=== PATIENT | female | born 1975 | race Caucasian/White ===

== ENCOUNTER 2017-08-31 06:18 | Day surgery (SDC) | payer BC, OTHER ==
[~2017-08-31 06:18] MED LIST: BUPIVACAINE HCL/PF (5 MG/ML) 30 ML VIAL IJ ONE; DEXAMETHASONE SOD PHOSPHATE 4 MG/1 ML VIAL IM ONE
[2017-08-31 07:16] VITALS: TEMP 98.4
[2017-08-31 07:23] VITALS: BMI 28.8
[2017-08-31] MEDS ORDERED: LIDOCAINE HCL 1%, 10 MG/ML (20ML VIAL) ONE (07:38)
[2017-08-31] MEDS ORDERED: DEXAMETHASONE SOD PHOSPHATE 4 MG/1 ML VIAL ONE ×2 (07:38→09:08)
[2017-08-31] MEDS ORDERED: BUPIVACAINE HCL/PF 0.5% (5MG/ML) 10 ML VIAL ONE (07:38)
[2017-08-31] MEDS ORDERED: PROPOFOL 20 ML ONE ×3 (07:53→09:28)
[2017-08-31] MEDS ORDERED: MIDAZOLAM HCL 2 MG/2 ML SINGLE DOSE VIAL ONE (07:53)
[2017-08-31] MEDS ORDERED: SUCCINYLCHOLINE CHLORIDE 200 MG/10 ML VIAL ONE (07:53)
[2017-08-31] MEDS ORDERED: ceFAZolin SODIUM 1 GM VIAL ONE ×2 (08:13→09:34)
[2017-08-31] MEDS ORDERED: BUPIVACAINE HCL/PF (5 MG/ML) 30 ML VIAL IJ ONE ×2 (08:18→09:43)
[2017-08-31] MEDS ORDERED: LIDOCAINE HCL 1%, 10 MG/ML (20ML VIAL) NR ONE (08:18)
[2017-08-31] MEDS ORDERED: KETOROLAC TROMETHAMINE 30 MG/1 ML VIAL ONE (09:28)
[2017-08-31] MEDS ORDERED: DEXAMETHASONE SOD PHOSPHATE 4 MG/1 ML VIAL IM ONE (09:43)
--- NOTE | 2017-08-31 10:37 | OP ---
Operative Note - Note: Operative Date: 08/31/17 Pre-Operative Diagnosis: soft tissue mass exostosis 1st mpj. Hammer toes 2,3,4, 5. Tailors bunion left Operation: excision tumor. Cheilectomy 1st MPJ. Arthroplasty PIPJ 2,3,4,5 left. Tailors bunionectomy left Findings: hypertrophic bone and soft tissue. Neoplasm 1st MPJ. Post-Operative Diagnosis: Same as Pre-op Surgeon: Otilia Pandey Production Control Supervisor: Bill Mejias Anesthesia: Local, MAC Estimated Blood Loss (mls): 10
[2017-08-31 11:52] VITALS: BP 119/69; PULSE 59
--- NOTE | 2017-08-31 13:16 | OP ---
DATE OF OPERATION: 08/31/2017 ATTENDING SURGEON: Otilia Pandey DPM TAILER OFF: Claudia Carrillo DPM PRE-PROCEDURE DIAGNOSES: 1. Soft tissue mass, left foot. 2. Exostosis, 1st metatarsal, left foot. 3. Hammertoe deformity, 2nd digit, left foot. 4. Hammertoe deformity, 3rd digit, left foot. 5. Hammertoe deformity, 4th digit, left foot. 6. Hammertoe deformity, 5th digit, left foot. 7. Tailor bunion. POST-PROCEDURE DIAGNOSES: 1. Soft tissue mass, left foot. 2. Exostosis, 1st metatarsal, left foot. 3. Hammertoe deformity, 2nd digit, left foot. 4. Hammertoe deformity, 3rd digit, left foot. 5. Hammertoe deformity, 4th digit, left foot. 6. Hammertoe deformity, 5th digit, left foot. 7. Tailor bunion. PROCEDURES: 1. Soft tissue mass excision. 2. Cheilectomy, left foot. 3. Second digit arthroplasty, left foot. 4. Third digit arthroplasty, left foot. 5. Fourth digit arthroplasty, left foot. 6. Fifth digit arthroplasty, left foot. 7. Tailor bunionectomy, left foot. MATERIALS: 3-0 Vicryl, 4-0 nylon, Betadine-soaked Adaptic, dry sterile dressings. HEMOSTASIS: Left pneumatic tourniquet ankle tourniquet set at 250 mmHg. BLOOD LOSS: Less than 10 mL. PATHOLOGY: Bone and soft tissue, left foot. DESCRIPTION OF PROCEDURE: The patient was brought to the operating room and placed on the operating room table in the supine position. A pneumatic ankle tourniquet was then placed on the patient's left ankle. Following adequate IV sedation, local anesthesia was administered to the left foot in V-block fashion to all the digits and in Dubon block fashion to the 1st ray, utilizing a total of 20 mL of a 1:1 mixture of 1% lidocaine plain and 0.5% Marcaine plain. The foot was then scrubbed, prepped and draped in the usual aseptic manner. An Esmarch bandage was then utilized to exsanguinate the patient's left foot and the tourniquet was inflated. Attention was then directed to the medial aspect of the 1st metatarsal head of the left foot. A number 15 blade was used to make a linear longitudinal incision over the dorsal medial aspect of the 1st metatarsophalangeal joint. The incision was deepened down to the level of the joint capsule. The joint capsule was then sharply incised with a number 15 blade and a soft tissue mass was noted intra-articularly within the first MPJ. The soft tissue mass was then excised using Metzenbaum scissors and sent for pathology specimen. At this time, bony exostosis was noted at the dorsal and medial aspect of the 1st metatarsal head. It was then decided that the patient would benefit from a cheilectomy. The dorsal and medial aspect of the 1st metatarsal was burred down using a power bur and the exostosis was also resected using a sagittal saw. Attention was then directed to the 2nd digit of the left foot, where 2 semi-elliptical incisions were made over the proximal interphalangeal joint and the skin wedge was removed in toto using a number 15 blade. Care was taken to identify and retract all vital neurovascular structures. A number 15 blade was then used to sharply incise the extensor tendon from the dorsal aspect and the head of the proximal phalanx was then freed utilizing a number 15 blade. Once the head of the proximal phalanx was freed of all ligamentous and capsular attachments, a sagittal saw was used to resect the head of the proximal phalanx. Once the head of the proximal phalanx was freed from all of its capsular and ligamentous attachments, it was resected using a sagittal saw. The 2nd digit now appeared to be in a more corrected position. The tendinous structures were then reapproximated using 3-0 Vicryl and the skin was closed using 4-0 nylon. The same procedure was then repeated on the 3rd, 4th, and 5th toes of the left foot. No K-wire fixation was used for any of the left foot hammertoes. After correction of hammertoes 2, 3, 4, and 5, attention was then directed to the tailor's bunion that was noted on the lateral aspect of the left foot. A bony exostosis was noted on the lateral aspect of the 5th metatarsal head. This bony exostosis was then resected utilizing a sagittal saw, and this exostosis was then passed from the operative field and sent for pathology specimen. The capsular structures of the 1st metatarsophalangeal joint were closed with 3-0 Vicryl and this was also used to close the lateral aspect of the 5th metatarsophalangeal joint of the same left foot. A 4-0 nylon was used to close skin. Upon completion of the procedure, the incisions were wrapped with Betadine-soaked surgical gauze and covered with sterile compressive dressings such as 4 x 4 gauze and Treasure and Allen wrap. The tourniquet was then deflated and immediate hyperemia returned to all digits of the left foot. The foot was then wrapped in Allen wrap. The patient tolerated the procedure well and was transferred to the recovery room with all vital signs stable and vascular status intact to the left foot. Following postoperative monitoring, the patient will be discharged and given instruction and prescription, which were discussed prior to surgery. Dictated by Claudia Carrillo DPM for BORA Gurrola DPM [id number]
--- NOTE | 2017-09-05 17:29 | PATH ---
Surgical Pathology Report Patient Name: SANKET GREENE [facility]. Rec. #: [id number] /Age/Gender: 1975 (Age: 42) / F Account: [id number] Location: [facility] SURGICAL Taken: 08/31/2017 Received: 08/31/2017 Reported: 09/05/2017 Physicians: Otilia Pandey DPM Specimen(s) Received A: 1ST METATARSAL TUMOR LEFT FOOT B: BONE TISSUE 1ST METATARSAL LEFT FOOT C: SOFT TISSUE MASS LATERAL SIDE 5TH METATARSAL LEFT FOOT D: SKIN TISSUE 2ND METATARSAL LEFT FOOT E: SKIN TISSUE 5TH METATARSAL LEFT FOOT F: SKIN TISSUE 4TH TOE METATARSAL LEFT FOOT G: SKIN TISSUE 3RD TOE METATARSAL LEFT FOOT Clinical History Bunions, hammertoe Final Diagnosis A. TUMOR FIRST METATARSAL, EXCISIONAL BIOPSY: FIBROCONEECTIVE TISSUE WITH FIBROMA OF THE TENDON SHEATH. B. BONE TISSUE, FIRST METATARSAL, EXCISION: FIBROCARTILAGINOUS TISSUE WITH DEGENERATIVE CHANGE. C. SOFT TISSUE MASS LATERAL SIDE, 5TH METATARSAL: SEGMENTS OF SKIN SHOWING FOCAL FIBROSIS IN THE DERMIS. D. SKIN TISSUE 2ND METATARSAL AND BONE TISSUE 2ND TOE, EXCISION: BONE WITH FATTY MARROW SHOWING DEGENERATIVE CHANGE. E. SKIN TISSUE 5TH METATARSAL AND BONE TISSUE 5TH TOE, EXCISION: CARTILAGE, BONE WITH FATTY MARROW SHOWING DEGENERATIVE CHANGE. SEGMENT OF SKIN WITH HYPERKERATOSIS. F. SKIN TISSUE 4TH METATARSAL AND BONE TISSUE 4TH TOE, EXCISION: CARTILAGE, BONE WITH FATTY MARROW SHOWING DEGENERATIVE CHANGE. SEGMENT OF SKIN WITH HYPERKERATOSIS. G. SKIN TISSUE 3RD METATARSAL AND BONE TISSUE 3RD TOE, EXCISION: CARTILAGE, BONE WITH FATTY MARROW SHOWING DEGENERATIVE CHANGE. SEGMENT OF SKIN WITH HYPERKERATOSIS. Electronically Signed Galen Downs M.D. Gross Description A. Received in formalin labeled "tumor first metatarsal left foot," is a 1.3 x 1.1 x 0.4 cm osborne portion of soft tissue. The specimen is inked blue and serially sectioned. Sectioning reveals homogeneous osborne parenchyma. The specimen is entirely in 2 cassettes. B. Received in formalin labeled "bone first metatarsal left foot," are 2 portions of bone with attached soft tissue averaging 0.8 x 0.5 x 0.1 cm. The specimens are bisected and entirely submitted in one cassette, following decalcification. C. Received in formalin labeled "soft tissue mass lateral side fifth metatarsal," is a 1.9 x 0.6 cm osborne, unoriented skin shave. The epidermal surface is unremarkable. The base is inked green and the specimen is serially sectioned. The specimen is entirely submitted in 2 cassettes. D. Received in formalin labeled "skin tissue and bone tissue second metatarsal left foot," is a 1.2 x 0.6 x 0.6 cm portion of bone. No skin or soft tissue is identified. The specimen is trisected and entirely submitted in one cassette, following decalcification. E. Received in formalin labeled "skin tissue and bone tissue fifth metatarsal left foot," is a 0.9 x 0.5 x 0.4 cm portion of bone admixed with skin and soft tissue fragments. Conservation Engineer sections are submitted in one cassette, following decalcification. F. Received in formalin labeled "skin tissue and bone tissue fourth metatarsal left foot," is a 0.8 x 0.4 x 0.3 cm portion of bone as well as a 1.5 x 0.4 cm osborne, unoriented skin shave. Conservation Engineer sections are submitted in one cassette, following decalcification. G. Received in formalin labeled "skin tissue and bone tissue third metatarsal," is a 0.9 x 0.5 x 0.5 cm portion of bone as well as a 1.5 x 0.5 cm osborne, unoriented skin shave. Conservation Engineer sections are submitted in one cassette, following decalcification. 08/31/2017 [facility]
== END 2017-08-31 11:15 | disposition home or self-care (01) ==
LOC: JASU-SURG 06:18
PROVIDERS: ATTEND Podiatrist Foot Surgery
PROC: 0QBP0ZZ Excision of Left Metatarsal, Open Approach (ICD-10-PCS; 2017-08-31)
PROC: 0QSP04Z Reposition Left Metatarsal with Internal Fixation Device, Open Approach (ICD-10-PCS; 2017-08-31)
PROC: 0SGQ0ZZ (ICD-10-PCS; principal; 2017-08-31 08:00)
PROC: 0SBN0ZX Excision of Left Metatarsal-Phalangeal Joint, Open Approach, Diagnostic (ICD-10-PCS; 2017-08-31 08:00)
DX: M20.42 Other hammer toe(s) (acquired), left foot (principal); M25.775 Osteophyte, left foot; L85.9 Epidermal thickening, unspecified; D21.22 Benign neoplasm of connective and other soft tissue of left lower limb, including hip
CPT/HCPCS: 73630-TC-LT; 84703; 88304-TC; 88307-TC; 88311-TC

== ENCOUNTER 2017-10-12 06:03 | Day surgery (SDC) | payer BC, OTHER ==
[2017-10-09 19:00] VITALS: BMI 28.5
[2017-10-12 07:03] VITALS: TEMP 98.3
[2017-10-12] MEDS ORDERED: LIDOCAINE HCL 2% (20ML MULTI-DOSE VIAL) NR ONE (07:17)
[2017-10-12] MEDS ORDERED: BUPIVACAINE HCL/PF 0.5% (5MG/ML) 10 ML VIAL ONE (07:18)
[2017-10-12] MEDS ORDERED: DEXAMETHASONE SOD PHOSPHATE 4 MG/1 ML VIAL ONE (07:20)
[2017-10-12] MEDS ORDERED: PROPOFOL 20 ML ONE ×3 (07:26→08:06)
[2017-10-12] MEDS ORDERED: LIDOCAINE HCL/PF 2% SDV 5ML VIAL ONE (07:26)
[2017-10-12] MEDS ORDERED: MIDAZOLAM HCL 2 MG/2 ML SINGLE DOSE VIAL ONE (07:27)
[2017-10-12] MEDS ORDERED: ceFAZolin SODIUM 1 GM VIAL ONE ×2 (07:58→09:00)
[2017-10-12] MEDS ORDERED: ceFAZolin SODIUM 1 GM VIAL IVPB ONE ×2 (08:01→09:03)
[2017-10-12] MEDS ORDERED: LIDOCAINE HCL 1%, 10 MG/ML (20ML VIAL) NR ONE (08:16)
[2017-10-12] MEDS ORDERED: BUPIVACAINE HCL/PF 0.5% (5MG/ML) 10 ML VIAL IJ ONE (08:16)
[2017-10-12] MEDS ORDERED: KETOROLAC TROMETHAMINE 30 MG/1 ML VIAL ONE (09:00)
[2017-10-12] MEDS ORDERED: oxyCODONE HCL 5 MG TABLET PO PRN (09:19)
[2017-10-12] MEDS ORDERED: ONDANSETRON 4 MG/2 ML VIAL IVPUSH PRN (09:19)
--- NOTE | 2017-10-12 09:21 | OP ---
Operative Note - Note: Operative Date: 10/12/17 Pre-Operative Diagnosis: Hallux Limitus/Valgus right, HT 3,4,5, Tailors bunion right Operation: Modified Calvert Bunionectomy with excision of soft tissue Mass. Arthroplasty PIPJ 3,4,5. Partial met head resection 5th met right Findings: hypertrophic bone and soft tissue Post-Operative Diagnosis: Same as Pre-op Surgeon: Otilia Pandey Retail Loss Prevention Officer: Bill Mejias Anesthesia: Local, MAC Specimens Removed: hypertrophic bone and soft tissue Estimated Blood Loss (mls): 10 Operative Report Dictated: Yes
[2017-10-12] MEDS ORDERED: LACTATED RINGERS SOLUTION 1,000 ML IV SCH (09:30)
[2017-10-12 12:40] VITALS: BP 120/70; PULSE 70
--- NOTE | 2017-10-13 14:04 | OP ---
DATE OF OPERATION: 10/12/2017 SURGEON: Otilia Pandey DPM PATTERN CHART WRITER: Bill Mejias DPM PREPROCEDURAL DIAGNOSES: Hallux limitus to right foot; hammertoe deformity to the proximal interphalangeal joint, digit 3 to 5; and tailor bunion. POSTPROCEDURAL DIAGNOSES: Hallux limitus to right foot; hammertoe deformity to the proximal interphalangeal joint, digit 3 to 5; and tailor bunion. PROCEDURES: Cheilectomy, right foot; arthroplasty, proximal interphalangeal joint, to digit 3 to 5; tailor bunionectomy. PATHOLOGY: Bone and soft tissue of right foot. ANESTHESIA: MAC and local. ESTIMATED BLOOD LOSS: Minimal. HEMOSTASIS: Right pneumatic ankle tourniquet at 250 mmHg. INJECTIONS: Preoperative injection of 27 mL of 1:1 mixture of 1% lidocaine plain and 0.5% Marcaine plain. PROCEDURE: The patient was both verbally and visually identified in the preoperative holding area. Informed consent was obtained and placed in the chart. All risks, benefits and complications were explained to the patient to their satisfaction. The patient was then brought to the operating room and placed on the operating table in the supine position. After adequate IV sedation a local infiltration block using 27 mL of a 1:1 mixture of 1% lidocaine plain and 0.5% Marcaine plain was administered to the right foot. The right foot was then prepped and draped in the usual aseptic fashion. Upon exsanguination of the right foot with an Esmarch the pneumatic right ankle tourniquet was inflated to 250 mmHg. Attention was then directed to the dorsal lateral aspect of the 1st MPJ of the right foot where a linear longitudinal incision was made and was approximately 4 cm in length. The incision was deepened through the subcutaneous tissue using sharp and blunt dissection. Care was taken to identify and retract all vital neural and vascular structures. All bleeders were cauterized as necessary. Next a linear capsulotomy was performed at the dorsomedial aspect of the 1st metatarsophalangeal joint. The periosteal and capsular structures were then carefully dissected free of the osseous attachment and retracted medially and laterally exposing the head of the 1st metatarsal at the operative site. Upon inspection 1st metatarsal head it was noted that there was dorsal osteophyte noted. Next utilizing a sagittal bone saw dorsal osteophytes were removed from the 1st metatarsal head and passed from the operative field and sent to Pathology. Utilizing rotating bur all rough edges were smoothened out. The surgical site was then irrigated with a sterile saline solution. The capsule was reapproximated with 3-0 Vicryl in simple suture fashion, the subcutaneous tissue was reapproximated with 4-0 Vicryl and the skin was reapproximated with 5-0 nylon in simple suture fashion. Attention was then directed to the dorsal aspect of the PIPJ of 3rd digit of the right foot where 2 semi longitudinal elliptical incisions were made. Incisions were deepened through the subcutaneous tissue using sharp and blunt dissection. Care was taken to identify and retract all vital neural and vascular structures. All bleeders were cauterized as necessary. The periosteal structures were then carefully dissected free of osseous attachment on the proximal phalanx and retracted medial and laterally exposing the length of the proximal phalanx at the operative site. The head of the proximal phalanx was visualized fully at this time and a sagittal bone saw was utilized to transect the head of the proximal phalanx which was removed from the operative field and remaining bone was then smoothened and we then irrigated. At this time extensor tendon was reapproximated utilizing 4-0 Vicryl and the skin was reapproximated with 5-0 nylon in simple suture fashion. Attention then directed to the dorsal aspect of 4th PIPJ of right foot where semi elliptical longitudinal incision was made. Incision was deepened through the subcutaneous tissue with blunt and sharp dissection utilized to dissect to the level of extensor tendon and capsule. All vital neural and vascular structures were retracted and all bleeders were then cauterized as necessary. The capsular ligaments were sharply incised to fully visualize the head of the proximal phalanx. Upon visualization of the head of the proximal phalanx a sagittal bone saw was utilized to transect the head of the proximal phalanx which was removed from the operative field and the remaining bone was smoothened and irrigated. Attention then redirected to the dorsum of the 5th PIPJ, right foot, where semi elliptical incision was made over digit 5th PIPJ on right foot. At this time blunt and sharp dissection was utilized to dissect to the level of extensor tendon and capsule. All vital neural and vascular structures were retracted and all bleeders were then cauterized as necessary. Capsular ligaments were sharply incised and fully visualized the head of the proximal phalanx. Upon full visualization of the head of the proximal phalanx a sagittal bone saw was utilized to dissect the head of the proximal phalanx which was removed from the operative field. The remaining bone was then smoothened and irrigated. Attention was directed to the 5th MPJ where dorsal lateral incision was made linearly. Incision was deepened through the subcutaneous tissue using sharp and blunt dissection and care was taken to identify and retract all vital neural and vascular structures. All bleeders were cauterized as necessary. Next a linear capsulotomy was performed at the dorsolateral aspect of the 5th metatarsophalangeal joint. The periosteal and capsular structures were then carefully dissected free of the osseous attachment and reflected medially and laterally exposing the head of the 5th metatarsal at the operative site. Utilizing a sagittal bone saw the lateral prominences were resected from the 5th metatarsal and passed from the operative field. The area was smoothened out utilizing rotating bur. The area was irrigated with normal saline solution. The capsular structures were reapproximated utilizing 3-0 Vicryl, subcutaneous tissue was reapproximated utilizing 4-0 Vicryl, skin was reapproximated with 5-0 nylon in simple suture fashion. At this time postoperative injection was given and the incision was dressed with Betadine-soaked Adaptic and covered with dry compressive dressing consisting of 4 x 4 gauze, Kerlix and Allen. The pneumatic ankle right tourniquet was deflated at this time and a prompt hyperemic response was noted to all digits of right foot. Patient tolerated the procedure and anesthesia well and left the operating room to the recovery room in good condition with the vital signs stable and neurovascular status intact. Capillary filling time was less than 3 seconds to all digits of the right foot. BORA Gurrola/[id number]
--- NOTE | 2017-10-16 17:06 | PATH ---
Surgical Pathology Report Patient Name: SANKET GREENE [facility]. Rec. #: [id number] /Age/Gender: 1975 (Age: 42) / F Account: [id number] Location: [facility] SURGICAL Taken: 10/12/2017 Received: 10/12/2017 Reported: 10/16/2017 Physicians: Otilia Pandey DPM Specimen(s) Received A: RIGHT FOOT BONE B: SOFT TISSUE MASS RIGHT FOOT C: RIGHT FOOT SKIN Clinical History Hallux valgus right foot Final Diagnosis A. RIGHT FOOT BONE, EXCISION: FRAGMENTS OF CARTILAGE CAPPED BONE WITH FATTY MARROW SHOWING DEGENERATIVE CHANGE. B. SOFT TISSUE MASS RIGHT FOOT: SYNOVIAL AND FIBROCONNECTIVE TISSUE SHOWING FOCAL FIBRINOUS EXUDATE, DEGENERATIVE CHANGE, AND FIBROSIS. C. RIGHT FOOT SKIN, EXCISION: SEGMENTS OF ACRALSKIN SHOWING INCREASED PERIPHERAL NERVE BUNDLES IN THE DERMIS WITH FOCAL FIBROSIS, SUGGESTIVE OF A NEUROMA. Electronically Signed Galen Downs M.D. Gross Description A. Received in formalin labeled "right foot bone," is a 2.3 x 1.8 x 0.6 cm aggregate of osborne portions of unremarkable bone. Speedboat Operator sections are submitted in one cassette, following decalcification. B. Received in formalin labeled "soft tissue mass right foot," is a 0.7 x 0.5 x 0.2 cm osborne portion of soft tissue. The specimen is submitted in toto in one cassette. C. Received in formalin labeled "right foot skin," are 3 osborne, unoriented, unremarkable portions of skin ranging from 1.0 x 0.3 cm to 1.6 x 0.5 cm. The largest portion is bisected and the specimen is entirely submitted in one cassette. /10/12/2017 saudi10/12/2017
== END 2017-10-12 12:45 | disposition home or self-care (01) ==
LOC: JASU-SURG 06:03
PROVIDERS: ATTEND Podiatrist Foot Surgery
PROC: 0QBP0ZZ Excision of Left Metatarsal, Open Approach (ICD-10-PCS; 2017-10-12)
PROC: 0QBN0ZZ Excision of Right Metatarsal, Open Approach (ICD-10-PCS; 2017-10-12)
PROC: 0QSN0ZZ Reposition Right Metatarsal, Open Approach (ICD-10-PCS; 2017-10-12)
PROC: 0SNP0ZZ Release Right Toe Phalangeal Joint, Open Approach (ICD-10-PCS; principal; 2017-10-12 07:30)
DX: M20.21 Hallux rigidus, right foot (principal); M20.41 Other hammer toe(s) (acquired), right foot; M21.621 Bunionette of right foot; M20.5X1 Other deformities of toe(s) (acquired), right foot
CPT/HCPCS: 73630-TC-RT-FY; 84703; 88304-TC; 88305-TC; 88311-TC; 94760